=== PATIENT | female | born 1985 | race Two or more races ===

== ENCOUNTER 2016-12-04 11:34 | Inpatient (IN) | payer OTHER ==
[~2016-12-04 11:34] MED LIST: DINOPROSTONE 10 MG VAGINAL SUPPOSITORY VG ONE
[2016-12-04 12:51] VITALS: BMI 26.2
[2016-12-04 13:00] LABS: MCH 32.1 pg (25.7-33.7); MCHC 33.7 g/dl (32.0-36.0); MEAN CELL VOLUME 95.1 fl (80-96); MEAN PLT VOLUME 8.2 fl (7.5-11.1); PLATELET COUNT 158 K/MM3 (134-434); RDW 13.3 % (11.6-15.6); WHITE BLOOD COUNT 8.8 K/mm3 (4.0-10.0)
[2016-12-04 13:20] LABS: INR 0.95 (0.82-1.09); PROTHROMBIN TIME (PATIENT) 10.4 SEC (9.98-11.88)
[2016-12-04 13:23] LABS: ACTIVATED PTT 24.8 SECONDS (26.9-34.4)
[2016-12-04 13:33] LABS: ANION GAP 8 (8-16); CALCIUM 8.7 mg/dL (8.5-10.1); CO2 26 mmol/L (21-32); CREATININE 0.4 mg/dL (0.55-1.02); GLUCOSE,RANDOM 96 mg/dL (74-106)
[2016-12-04 13:48] LABS: PLATELET ESTIMATE ADEQUATE (NORMAL); TOTAL CELLS COUNTED 100
[2016-12-04 13:49] LABS: METAMYELOCYTE 2 % (0-2); MYELOCYTE 1 % (0-2)
--- NOTE | 2016-12-04 17:18 | HP ---
Past Medical History - Primary Care Physician PCP:: Alvina Velasco - Admission Chief Complaint: 31 yrs , edc 12/03/16 40.1 weeks c/o decreased FM for 3 days , requests for delivery ,. 12/03/16 sono , 40 .0 weeks, Vx, , post placenta BPP8/8, ISIAH 13.58cm, , EFW 70 %tile (3524gm -7'12") History of Present Illness: care at [address] [place] [address] . wt gain 37 lbs . work Up : B Pos, Rpr nr, Hbsg neg, Rubella pos, Quantiferon neg, ! hr Ama142, 3 Hr Gtt wnl ( 85, 161, 122, 89 ) genetic counselling was done due to marriage between cousins , declined work UP . NT screen was not done. Quad screen neg , growth sono done by MFM , reviewed anatomy sono normal History Source: Patient, Medical Record Limitations to Obtaining History: No Limitations - Past Medical History DIRECTOR MARKETING ANALYTICS: No: Migraine, Seizure Cardiovascular: No: HTN Pulmonary: No: Asthma Gastrointestinal: No: Constipation, GERD Hepatobiliary: No: Hepatitis B Renal/: No: UTI ...: 1 ...Para: 0 ...Term: 0 ...: 0 ...Spon : 0 ...Induced : 0 ...Multiple Gestation: 0 ...LMP: 03/08/16 ... Weeks Gestation by Dates: 38.5 ...EDC by Dates: 12/13/16 ...EDC by Sono: 12/03/16 (40.1 weeks by sono ) Heme/Onc: No: Anemia Infectious Disease: No: AIDS, HIV, STD's, Tuberculosis Psych: No: Addictions, Anxiety, Bipolar Endocrine: No: Diabetes Mellitus, Hypothyroidism - Past Surgical History Past Surgical History: Yes: None Hx Myomectomy: No Hx Transabdominal Cerclage: No - Smoking History Smoking history: Never smoked Have you smoked in the past 12 months: No - Alcohol/Substance Use Hx Alcohol Use: No History of Substance Use: reports: None Home Medications - Allergies Allergies/Adverse Reactions: Allergies Allergy/AdvReac Type Severity Reaction Status Date / Time No Known Allergies Allergy Verified 12/04/16 12:35 - Home Medications Home Medications: Ambulatory Orders Vit/Iron Fumarate/FA [ Tablet] 1 tab PO DAILY 12/04/16 Physical Exam - Maternity Vital Signs: Vital Signs Temperature 98.0 F 12/04/16 16:00 Pulse Rate 92 H 12/04/16 16:00 Respiratory Rate 20 12/04/16 16:00 Blood Pressure 103/65 12/04/16 16:00 O2 Sat by Pulse Oximetry (%) Selected Entries 12/04/16 12/04/16 12:36 14:25 Temperature 98.4 F Pulse Rate 93 H Blood Pressure 108/61 Weight 158 lb Constitutional: Yes: No Distress Eyes: Yes: WNL HENT: Yes: WNL Neck: Yes: WNL Cardiovascular: Yes: WNL Lungs: Clear to auscultation Breast(s): Yes: WNL - Abdominal Exam/OB Fundal Height: 40 Number of Fetuses: Single Presentation: Vertex Contractions: No Heart Rate (range): 140-150 Heart Rate Location: [facility] Category: I Accelerations: Uniform Decelerations: None - Vaginal Exam/OB Vaginal Bleediing: No Speculum Exam: No Dilatation (cm): close, Effacement (%): unefface Amniotic Membrane Status: Intact Presentation: Vertex/Position Station: -2 - Physical Exam Musculoskeletal: Yes: WNL Extremities: Yes: WNL. No: Calf Tenderness Edema: Yes Edema: LLE: 1+, RLE: 1+ Integumentary: Yes: WNL. No: Tattoos Deep Tendon Reflex Grade: Normal +2 ...Motor Strength: WNL Psychiatric: Yes: WNL, Alert, Oriented - Labs Lab Results: CBC, BMP 12/04/16 12:30 12/04/16 12:30 Laboratory Tests 12/04/16 12/04/16 12:30 12:30 INR 0.95 PTT (Actin FS) 24.8 L RPR Titer Nonreactive Laboratory Tests 12/04/16 12:30 Blood Type B POSITIVE Antibody Screen Negative Problem List - Problems (1) Post-term , 40-42 weeks of gestation Code(s): O48.0 - POST-TERM (2) Elective induction of labor planned Code(s): LZE5204 - Assessment/Plan 31 yrs , 40.1 weeks by sono c/o decreased FM,GBS neg admitted for induction of labor plan Cervidil insertrd at 5.O'clock anticipate vaginal delivery , trial epidural labor analgesia prn
[2016-12-04] MEDS ORDERED: PROMETHAZINE HCL 25 MG/1 ML VIAL IVPUSH ONE (17:27)
[2016-12-04] MEDS ORDERED: BUTORPHANOL TARTRATE 1 MG/ML VIAL IVPB ONE (17:27)
[2016-12-04] MEDS ORDERED: SODIUM PHOSPHATE/NA BIPHOS 133 ML ENEMA PR ONE (17:30)
[2016-12-04] MEDS ORDERED: DEXTROSE 5%-LACTATED RINGERS 1,000 ML IV SCH (17:30)
[2016-12-05] MEDS ORDERED: DEXTROSE 5%-LACTATED RINGERS 1,000 ML IV SCH (02:45)
[2016-12-05] MEDS ORDERED: BUTORPHANOL TARTRATE 1 MG/ML VIAL IVPB ONE (02:45)
[2016-12-05] MEDS ORDERED: PROMETHAZINE HCL 25 MG/1 ML VIAL IVPB ONE (02:45)
--- NOTE | 2016-12-05 05:29 | PN ---
Progress Note (short form) - Note Progress Note: 5.00. am cervidil removed . cx 1 cm/post/60 % /post/Mi/vx -1 station /pelvis adequate pt was given stadol 2 mg + phenrgan 25 mg iv at 2.15 am presently UC are irregular 3-6 min apart , mild, fhr 140-150 , cat-1 Selected Entries 12/05/16 12/05/16 01:00 03:00 Temperature 98.2 F Pulse Rate 90 76 Blood Pressure 122/64 114/62 pt is unable to tolerate vaginal exam since she is still drowsy, will wait to start Pitocin Augmentation Problem List - Problems (1) Post-term , 40-42 weeks of gestation Code(s): O48.0 - POST-TERM (2) Elective induction of labor planned Code(s): QNI8921 -
[2016-12-05] MEDS ORDERED: OXYTOCIN 15 UNITS/ LR 250 ML 250 ML IVPB SCH (05:30)
[2016-12-05] MEDS ORDERED: ELECTROLYTE-148 SOLN 1,000 ML IV SCH (08:00)
--- NOTE | 2016-12-05 09:29 | PN ---
Progress Note, Labor Vaginal Exam #1 Labor Exam Date: 12/05/16 Labor Exam Time: 09:10 Heart Rate (range): 150 Dilatation: 2-3 Effacement (%): 60 Amniotic Membrane Status: Intact Presentation: Vertex/Position Station: -1 Remarks: cx still posterior FHR 150 bpm low btb variablity, no decel With scalp massage fhr upto 156 bpm noted 8.15 AM Epidural labor analgesia was given since she is in tolerant to pain & vaginal exams plan ct trial of labor . Selected Entries 12/05/16 12/05/16 08:00 09:00 Temperature 97.9 F Pulse Rate 79 82 Blood Pressure 110/65 106/72 Vaginal Exam #2 Labor Exam Date: 12/05/16 Labor Exam Time: 10:05 Heart Rate (range): 150 Dilatation: 3-4 Effacement (%): 65 Amniotic Membrane Status: Ruptured (AROM blood stained) Presentation: Vertex/Position Station: -1 (-2/-1) Remarks: fhr cat-2 , decel to 90 bpm scalp electrode applied uc 2 min pitocin reduced Selected Entries 12/05/16 09:35 Pulse Rate 92 H Blood Pressure 106/67 10 30 AM fhr 160 bpm , no btb variablity , cat -2 Imp : Non reassuring FHR; Failed Induction of labor , Post term Plan stop trial of labor delivery by primary c/section
[2016-12-05] MEDS ORDERED: FENTANYL/BUPIVACAINE/NS/PF - PCEA - 50 ML DISP.SYRIN EP SCH ×2 (09:45)
[2016-12-05] MEDS ORDERED: CITRIC ACID/SODIUM CITRATE 30 ML UNIT-DOSE CUP PO ONE (10:48)
[2016-12-05 12:01] LABS: ARTERIAL BLOOD GAS BASE EXCESS 1.2 meq/l (-2-2); ARTERIAL BLOOD GAS HCO3 29.9 meq/L (22-26); ARTERIAL BLOOD GAS PO2 16.1 mmHg (80-100)
[2016-12-05 12:04] LABS: ARTERIAL BLD GAS O2 SATURATION 36.5 % (90-98.9); ARTERIAL BLOOD GAS BASE EXCESS 0.7 meq/l (-2-2); ARTERIAL BLOOD GAS HCO3 27.7 meq/L (22-26); ARTERIAL BLOOD GAS PO2 22.4 mmHg (80-100); PT. ON O2? NO
[2016-12-05 12:05] LABS: PT. ON O2? NO
[2016-12-05 12:06] LABS: ARTERIAL BLOOD GAS pH 7.32 (7.35-7.45)
[2016-12-05 12:07] LABS: ARTERIAL BLOOD GAS pH 7.28 (7.35-7.45)
[2016-12-05] MEDS ORDERED: ONDANSETRON 4 MG/2 ML VIAL IVPB PRN (12:26)
[2016-12-05] MEDS ORDERED: SENNOSIDES/DOCUSATE COMBO (SENNA PLUS) TABLET (UD) PO PRN (12:32)
[2016-12-05] MEDS ORDERED: METHYLERGONOVINE MALEATE 0.2 MG/1 ML AMP IM PRN (12:32)
--- NOTE | 2016-12-05 12:44 | OP ---
Operative Note - Note: Operative Date: 12/05/16 Pre-Operative Diagnosis: post term pregn, , non reassuring fhr, failed induction of labor Operation: Primary LFTC/Section Findings: 11.34 am , baby girl, 9/9, wt 7'14" ., ROT position both tubes & ovaries normal AFluid clear Benefits Specialist Dr North present in the room post low lying placenta Post-Operative Diagnosis: Other (posterior low Lying Placenta) Surgeon: Alvina Velasco Hand Inserter Operator: Orlando Sheldon Anesthesiologist/LICENSED DIRECT ENTRY MIDWIFE: Rita Choudhury Anesthesia: Epidural Specimens Removed: placenta. cord segment for ABG. cord blood sampling Estimated Blood Loss (mls): 600 Drains, Volume Out (mls): 25 (romero output sukhdeep cplor) Fluid Volume Replaced (mls): 900 (Iv ancef 1 gm ivpb ) Operative Report Dictated: Yes
[2016-12-05] MEDS: D5W-LR W/ 20 UNITS OXYTOCIN 1,000 ML IV SCH (12:54)
[2016-12-05] MEDS: IBUPROFEN 800 MG/8 ML IJ IVPB PRN ×2 (13:40→21:31)
--- NOTE | 2016-12-05 14:00 | OP ---
DATE OF OPERATION: 12/05/2016 PREOPERATIVE DIAGNOSIS: Post-term , non-reassuring heart, failed induction of labor. OPERATION: Primary low flap transverse section. SURGEON: Alvina Velasco MD [employer] [employer] DIRECTOR SURGEON: KASIA Montenegro ANESTHESIOLOGIST: Rita Choudhury DO ANESTHESIA: Epidural. FINDINGS: This is a 31-year-old, 1, para 0, 40-2/7 weeks today, is complaining of decreased movements and she was induced with Cervidil. She dilated up to 3 to 4 cm but Fhr [id number] variability low, decelerations were noted. A rupture of membranes was done and amniotic fluid was blood stained and copious amount of blood was noted, and non-reassuring heart after scalp electrodes applied, still the [id number] variability low noted so it was decided to deliver the baby by section. PROCEDURE: The patient was taken to the operating room table. Epidural Analgesia was converted into epidural anesthesia. She was in the supine position. Mackey catheter was in situ. Abdomen was shaved, prepped, and then it was painted and draped in the usual manner. Pfannenstiel incision was made through skin and subcutaneous tissue. Anterior rectus sheath was incised transversely. Bleeding points were clamped and cauterized. Rectus muscle was from the rectus sheath. Parietal peritoneum was opened vertically. Lower flap parietal peritoneum was incised transversely and the lower uterine segment was isolated. It was incised transversely. Amniotic fluid was clear. Baby was delivered from ROT position. Cord was clamped, cut, and the cord segment was collected for the cord blood gases, and then the cord blood also was collected. Baby girl: was 9/9, baby's weight is [address] North, improvement coordinator, was present in the room. Placenta was removed completely with the membranes and it was noted that the placenta was low lying posteriorly. The site of insertion was noted and it was the bleeding site from where the bleeding was occurring posteriorly on the uterus. Uterine cavity was completely cleaned and then the uterus incision was closed in 2 layers, first layer was a continuous locking with a Biosyn 0 suture, second layer was also closed with a Biosyn 0 continuous intermittent locking and vertical mattress sutures were taken. Hemostasis was verified. Bladder peritoneum was closed with a Biosyn 0 suture. Both tubes and ovaries were normal. Sponge, instrument, needle count was correct. Irrigation was done. Then the closure of the abdomen was done. Parietal peritoneum was closed with a Vicryl 0 suture. Muscles were approximated together with a Vicryl 0 interrupted sutures, and then anterior rectus sheath was closed with a Vicryl 0 continuous suture. Hemostasis was verified underneath the rectus sheath, before its closure, and also in subcutaneous tissue, hemostasis was achieved. Then the subcutaneous tissue was approximated with interrupted suture with a Vicryl 0. Then skin was approximated with cassy. A pressure dressing was given. Blood clots were removed from the vagina. The estimated blood loss was 700 mL. Urine output was 25 mL intraoperative. Crystalloid solution 900 IV infusion was given. She received IV Ancef 1 g prior to the incision. Patient tolerated procedure well and was transferred to the recovery room in stable condition. Postoperatively in the recovery room the urine output improved. Valerie [id number] MTDD
--- NOTE | 2016-12-05 14:15 | PN ---
Delivery - Delivery Section: Primary, Low Flap Transverse (postterm pregn, 40.2 weeks, non reassuring FHR, Failed induction of labor) Type of Anesthesia: Epidural EBL (cc): 600 Delivery, Single - Stages of Labor Date 1st Stage Initiatied: 12/05/16 Time 1st Stage Initiated: 02:00 Date of Delivery: 12/05/16 Time of Delivery: 11:34 Date Placenta Delivered: 12/05/16 (placenta posterior, lolying ) Time Placenta Delivered: 11:35 Placenta: Yes: Manual Removal, Uterine Exploration - Condition of Infant Inbound Customer Service Agent/Residential Installer Present: Yes Name: Opal North Infant Gender: Female Weight: 7 lb 14 oz Position: Right, OT Total Hours ROM (Hrs/Mins): 1 hour 35 minutes - 1 Minute Total Score: 9 5 Minutes Total Score: 9 - Feeding Plan Initial Plan: Exclusive throughout hospitalization Remarks - Remarks Remarks: 31 yrs , 40 .2 weeks admitted on 12/04/16 for decreased FM for induction of labor. pnc at [address] [place] [address]. gbs neg Cerrvidil inserted on 12/04/16 . 12 hrs after cervidil, 12/05/16 pitocin induction started she received stadol + phenrgan for labor analgesia followed by epidural FHR tracing BTB variablity was low, but cat 1 later on sp late decels were noted, arom was done, blood stained fluid noted, bleeding also vaginal was seen scalp electrode , no btb variablity was noted, pt contd to bleed . pt was taken for c/section intraop course was uneventful ,
[2016-12-05] MEDS ORDERED: DEXTROSE 5%-WATER - 50 ML IVPB ONE (17:31)
[2016-12-05] MEDS ORDERED: ceFAZolin SODIUM 1 GM VIAL ONE (17:32)
[2016-12-05] MEDS: CEFAZOLIN 1 GM in DEXTROSE 5%-WATER - 50 ML IVPB SCH (17:37)
[2016-12-06] MEDS ORDERED: ceFAZolin SODIUM 1 GM VIAL ONE ×2 (01:44→09:17)
[2016-12-06] MEDS ORDERED: DEXTROSE 5%-WATER - 50 ML IVPB ONE ×2 (01:44→09:17)
[2016-12-06] MEDS: CEFAZOLIN 1 GM in DEXTROSE 5%-WATER - 50 ML IVPB SCH ×2 (01:46→09:29)
[2016-12-06] MEDS: IBUPROFEN 800 MG/8 ML IJ IVPB PRN (06:34)
[2016-12-06] MEDS ORDERED: oxyCODONE HCL 5 MG TABLET PO PRN (08:00)
[2016-12-06 08:56] LABS: BASOPHIL 0.2 % (0-2.0); EOSINOPHIL 0.6 % (0-4.5); MCH 31.9 pg (25.7-33.7); MCHC 33.2 g/dl (32.0-36.0); MEAN CELL VOLUME 96.1 fl (80-96); MEAN PLT VOLUME 8.4 fl (7.5-11.1); NEUTROPHILS 81.1 % (42.8-82.8); PLATELET COUNT 142 K/MM3 (134-434); RDW 13.6 % (11.6-15.6); WHITE BLOOD COUNT 10.4 K/mm3 (4.0-10.0)
[2016-12-06] MEDS: PRENATAL VITAMINS W/ FOLIC ACID TABLET (FP) PO SCH (09:33)
[2016-12-06] MEDS: ENOXAPARIN NA (PORCINE) 40 MG/0.4 ML DISP.SYRIN SQ SCH (09:33)
[2016-12-06] MEDS: ACETAMINOPHEN 325 MG TABLET (FP) PO PRN (09:37)
[2016-12-06] MEDS ORDERED: BISACODYL 10 MG SUPP.RECT RC PRN (12:32)
[2016-12-06] MEDS: D5W-LR W/ 20 UNITS OXYTOCIN 1,000 ML IV SCH (12:44)
--- NOTE | 2016-12-06 13:34 | PN ---
Progress Note (short form) - Note Progress Note: Anesthesiology Post-op POD#1 s/p C/S under spinal anesthesia. Pt. feels well, she is able to walk without difficulty, denies h/a. No trouble with urination. VSS. Pain managed with mediations.
--- NOTE | 2016-12-06 13:39 | PN ---
Progress Note (short form) - Note Progress Note: Anesthesiology Post-op POD#1 s/p C/S under spinal anesthesia. Pt. feels well, she is able to walk without difficulty, denies h/a. No trouble with urination. VSS. Pain managed with mediations. ADDENDUM THIS SHOULD READ EPIDURAL ANESTHESIA INSTEAD OF SPINAL ANESTHESIA.
[2016-12-06] MEDS ORDERED: DIPHTH,PERTUSS(ACELL),TET 0.5 ML DISP.SYRIN IM ONE ×2 (14:00→17:00)
[2016-12-06] MEDS: IBUPROFEN 600 MG TABLET (FP) PO PRN ×2 (14:12→21:23)
[2016-12-06] MEDS: SIMETHICONE 80 MG TAB.CHEW (FP) PO PRN ×2 (14:14→21:23)
--- NOTE | 2016-12-06 15:01 | PN ---
Post Progress Note - Subjective Subjective: c/o pain scale 8/10 not voided since romero was taken out Post Day: 1 Type of Delivery: Primary C/S Vital Signs: Vital Signs Temperature 97.7 F 12/06/16 10:00 Pulse Rate 75 12/06/16 10:00 Respiratory Rate 18 12/06/16 11:00 Blood Pressure 94/51 12/06/16 10:00 O2 Sat by Pulse Oximetry (%) 100 12/05/16 13:20 Breast Exam: Yes: Soft, Other (BF ). No: Engorged Uterus: Yes: Fundus Firm, Fundus below umbilicus, Non-tender Incision: Yes: Dressing dry and intact. No: Redness, Oozing Abdomen/GI: Yes: Abdomen soft (bs active ), Passing flatus, Tolerating PO (diet ). No: Abdominal Distention, Tender Lochia: Yes: Rubra Lochia, amount: Moderate Extremities: Yes: Calves non-tender Perineum: Yes: Intact Activity: Other (not oob yet ) - Labs Labs: CBC WBC 10.4 K/mm3 (4.0-10.0) H 12/06/16 07:35 RBC 3.80 M/mm3 (3.60-5.2) 12/06/16 07:35 Hgb 12.1 GM/dL (10.7-15.3) 12/06/16 07:35 Hct 36.6 % (32.4-45.2) 12/06/16 07:35 MCV 96.1 fl (80-96) H 12/06/16 07:35 MCH 31.9 pg (25.7-33.7) 12/06/16 07:35 MCHC 33.2 g/dl (32.0-36.0) 12/06/16 07:35 RDW 13.6 % (11.6-15.6) 12/06/16 07:35 Plt Count 142 K/MM3 (134-434) 12/06/16 07:35 MPV 8.4 fl (7.5-11.1) 12/06/16 07:35 Total Counted 100 12/04/16 12:30 Neutrophils % 81.1 % (42.8-82.8) 12/06/16 07:35 Neutrophils % (Manual) 72 % (42.8-82.8) 12/04/16 12:30 Band Neuts % (Manual) 2 % (0-10) 12/04/16 12:30 Lymphocytes % 9.7 % (8-40) 12/06/16 07:35 Lymphocytes % (Manual) 16 % (8-40) 12/04/16 12:30 Monocytes % 8.4 % (3.8-10.2) 12/06/16 07:35 Monocytes % (Manual) 7 % (3.8-10.2) 12/04/16 12:30 Eosinophils % 0.6 % (0-4.5) 12/06/16 07:35 Basophils % 0.2 % (0-2.0) 12/06/16 07:35 Myelocytes % (Man) 1 % (0-2) 12/04/16 12:30 Platelet Estimate Adequate (NORMAL) 12/04/16 12:30 Other Findings, Remarks: RS cta I/o adequate Problem List - Problems (1) Post-term , 40-42 weeks of gestation Code(s): O48.0 - POST-TERM (2) Elective induction of labor planned Code(s): TUH4465 - Assessment/Plan stable. plan : ct po care encourage, po fluids, ambulation, deep breathing
[2016-12-06] MEDS: FERROUS SO4 325 MG TABLET (FP) PO SCH (21:23)
[2016-12-06] MEDS: oxyCODONE HCL 5 MG TABLET PO PRN (21:24)
[2016-12-07] MEDS: SIMETHICONE 80 MG TAB.CHEW (FP) PO PRN ×2 (01:59→07:52)
[2016-12-07] MEDS: IBUPROFEN 600 MG TABLET (FP) PO PRN ×3 (01:59→17:07)
[2016-12-07] MEDS: oxyCODONE HCL 5 MG TABLET PO PRN ×3 (01:59→17:07)
--- NOTE | 2016-12-07 07:38 | PN ---
Progress Note (short form) - Note Progress Note: pod 2 s/p c/s voids ok, no excess vaginal bleeding, ambulating CBC, BMP 12/06/16 07:35 12/04/16 12:30 Last Vital Signs Temp Pulse Resp BP Pulse Ox 98.0 F 88 20 108/62 100 12/06/16 21:00 12/06/16 21:00 12/06/16 21:00 12/06/16 21:00 12/05/16 13:20 abdomen soft, no distension, no cva incision dry, clean no calf tenderness plan ambulte, cbc in am pain management
[2016-12-07] MEDS: ACETAMINOPHEN 325 MG TABLET (FP) PO PRN ×2 (07:50→17:08)
[2016-12-07] MEDS: ENOXAPARIN NA (PORCINE) 40 MG/0.4 ML DISP.SYRIN SQ SCH (09:27)
[2016-12-07] MEDS: FERROUS SO4 325 MG TABLET (FP) PO SCH ×2 (09:28→22:31)
[2016-12-07] MEDS: PRENATAL VITAMINS W/ FOLIC ACID TABLET (FP) PO SCH (09:28)
[2016-12-08] MEDS: oxyCODONE HCL 5 MG TABLET PO PRN ×3 (02:57→16:13)
[2016-12-08] MEDS: ACETAMINOPHEN 325 MG TABLET (FP) PO PRN ×3 (02:57→16:14)
[2016-12-08] MEDS: SIMETHICONE 80 MG TAB.CHEW (FP) PO PRN ×2 (02:57→16:13)
[2016-12-08 07:55] LABS: BASOPHIL 0.6 % (0-2.0); EOSINOPHIL 2.2 % (0-4.5); MCH 32.7 pg (25.7-33.7); MCHC 34.2 g/dl (32.0-36.0); MEAN CELL VOLUME 95.5 fl (80-96); MEAN PLT VOLUME 7.7 fl (7.5-11.1); NEUTROPHILS 67.1 % (42.8-82.8); PLATELET COUNT 199 K/MM3 (134-434); RDW 13.4 % (11.6-15.6); WHITE BLOOD COUNT 6.8 K/mm3 (4.0-10.0)
--- NOTE | 2016-12-08 08:53 | PN ---
Post Progress Note - Subjective Subjective: 31 yo Para 1 status post primary , seen and evaluated. Doing well. Post Day: 3 Type of Delivery: Primary C/S Vital Signs: Vital Signs Temperature 98.2 F 12/07/16 21:17 Pulse Rate 87 12/07/16 21:17 Respiratory Rate 20 12/07/16 21:17 Blood Pressure 109/71 12/07/16 21:17 O2 Sat by Pulse Oximetry (%) 100 12/05/16 13:20 Breast Exam: Yes: Soft Uterus: Yes: Fundus Firm Incision: Yes: Dillard intact Abdomen/GI: Yes: Abdomen soft, Tolerating PO Lochia: Yes: Rubra Lochia, amount: Small Extremities: Yes: Calves non-tender Perineum: Yes: Intact Activity: Ambulating - Labs Labs: CBC WBC 6.8 K/mm3 (4.0-10.0) D 12/08/16 07:00 RBC 3.78 M/mm3 (3.60-5.2) 12/08/16 07:00 Hgb 12.3 GM/dL (10.7-15.3) 12/08/16 07:00 Hct 36.1 % (32.4-45.2) 12/08/16 07:00 MCV 95.5 fl (80-96) 12/08/16 07:00 MCH 32.7 pg (25.7-33.7) 12/08/16 07:00 MCHC 34.2 g/dl (32.0-36.0) 12/08/16 07:00 RDW 13.4 % (11.6-15.6) 12/08/16 07:00 Plt Count 199 K/MM3 (134-434) D 12/08/16 07:00 MPV 7.7 fl (7.5-11.1) 12/08/16 07:00 Total Counted 100 12/04/16 12:30 Neutrophils % 67.1 % (42.8-82.8) 12/08/16 07:00 Neutrophils % (Manual) 72 % (42.8-82.8) 12/04/16 12:30 Band Neuts % (Manual) 2 % (0-10) 12/04/16 12:30 Lymphocytes % 22.5 % (8-40) D 12/08/16 07:00 Lymphocytes % (Manual) 16 % (8-40) 12/04/16 12:30 Monocytes % 7.6 % (3.8-10.2) 12/08/16 07:00 Monocytes % (Manual) 7 % (3.8-10.2) 12/04/16 12:30 Eosinophils % 2.2 % (0-4.5) D 12/08/16 07:00 Basophils % 0.6 % (0-2.0) 12/08/16 07:00 Myelocytes % (Man) 1 % (0-2) 12/04/16 12:30 Platelet Estimate Adequate (NORMAL) 12/04/16 12:30 Assessment/Plan Status post repeat Stable Continue routine Post op care
[2016-12-08] MEDS: FERROUS SO4 325 MG TABLET (FP) PO SCH ×2 (09:04→23:31)
[2016-12-08] MEDS: ENOXAPARIN NA (PORCINE) 40 MG/0.4 ML DISP.SYRIN SQ SCH (09:04)
[2016-12-08] MEDS: PRENATAL VITAMINS W/ FOLIC ACID TABLET (FP) PO SCH (09:04)
[2016-12-08] MEDS: IBUPROFEN 600 MG TABLET (FP) PO PRN ×2 (09:05→16:14)
[2016-12-09] MEDS: SIMETHICONE 80 MG TAB.CHEW (FP) PO PRN ×2 (01:27→09:57)
[2016-12-09] MEDS: ACETAMINOPHEN 325 MG TABLET (FP) PO PRN ×2 (01:27→09:57)
[2016-12-09] MEDS: IBUPROFEN 600 MG TABLET (FP) PO PRN ×2 (01:28→09:58)
[2016-12-09] MEDS: oxyCODONE HCL 5 MG TABLET PO PRN (01:28)
[2016-12-09 08:05] VITALS: BP 101/67; PULSE 78; TEMP 98.3
[2016-12-09] MEDS: FERROUS SO4 325 MG TABLET (FP) PO SCH (09:57)
[2016-12-09] MEDS: ENOXAPARIN NA (PORCINE) 40 MG/0.4 ML DISP.SYRIN SQ SCH (09:57)
[2016-12-09] MEDS: PRENATAL VITAMINS W/ FOLIC ACID TABLET (FP) PO SCH (09:57)
--- NOTE | 2016-12-09 11:12 | DS ---
Physical Exam-MATERIAL ANALYST Vital Signs: Vital Signs Temperature 98.3 F 12/09/16 08:04 Pulse Rate 78 12/09/16 08:04 Respiratory Rate 20 12/09/16 08:04 Blood Pressure 101/67 12/09/16 08:04 O2 Sat by Pulse Oximetry (%) 100 12/08/16 21:00 Constitutional: Yes: Well Nourished Eyes: Yes: Conjunctiva Clear HENT: Yes: Atraumatic Neck: Yes: Supple, Trachea Midline Cardiovascular: Yes: Regular Rate and Rhythm Respiratory: Yes: Regular Gastrointestinal: Yes: Normal Bowel Sounds ...Rectal Exam: Yes: WNL Renal/: Yes: WNL Pelvis: Yes: WNL External Genitalia: Yes: Normal Vaginal Exam: Yes: Normal Cervix: Yes: Normal ....Post : Yes: Uterus firm Wound/Incision: Yes: Well Approximated, Shamika Removed, Other (Sterile strips placed). No: Bleeding Neurological: Yes: Alert, Oriented Labs: CBC, BMP 12/08/16 07:00 12/04/16 12:30 Delivery - Delivery Section: Primary, Low Flap Transverse (postterm pregn, 40.2 weeks, non reassuring FHR, Failed induction of labor) Type of Anesthesia: Epidural EBL (cc): 600 Delivery, Single - Stages of Labor Date 1st Stage Initiatied: 12/05/16 Time 1st Stage Initiated: 02:00 Date of Delivery: 12/05/16 Time of Delivery: 11:34 Time Placenta Delivered: 11:35 Placenta: Yes: Manual Removal, Uterine Exploration - Condition of Infant Assembly Machine Offbearer/Post Graduate Internship Present: Yes Name: Opal North Infant Gender: Female Weight: 7 lb 14 oz Position: Right, OT Total Hours ROM (Hrs/Mins): 1 hour 35 minutes - 1 Minute Total Score: 9 5 Minutes Total Score: 9 - [place] Feeding Plan Initial Plan: Exclusive throughout hospitalization Discharge Summary Reason For Visit: INDUCTION OF LABOR Current Active Problems Delivery by emergency section (Acute) Elective induction of labor planned (Acute) Non-reassuring electronic monitoring tracing (Acute) Post-term , 40-42 weeks of gestation (Acute) Procedures: Principal: Repeat Low Transverse Hospital Course: Routine Post op care Condition: Stable - Instructions Diet, Activity, Other Instructions: Post Instructions DIET: Continue good diet high in protein, calcium, and iron rich foods. Drink at least eight (8) glasses of water daily in addition to other fluids. ct Regular diet MEDICATIONS: Continue vitamins and iron as previously directed. Motrin and Tylenol may be taken for minor discomfort. ACTIVITY: Mild to moderate exercise may be started in two (2) weeks. Take frequent rest periods. Resume normal activity after six (6) week check up. WOUND CARE OF OPERATIVE SITE: Continue use of perineal bottle until vaginal discharge stops. Keep area clean. Shower daily. Keep abdominal wound dry. Report any drainage or redness to physician. Tub baths, tampons and douches are not permitted for [address] Breast feeding & or Bottle feeding BREAST CARE: (For those that are not breast feeding): If engorgement occurs: Wear tight fitting bra. Take Tylenol or Motrin for pain. Apply cold packs (ice in bags to each breast ) FAMILY PLANNING: There are many control alternatives to pursue and they should be discussed at your first office visit. You may resume sexual activity after your six (6) week check up. (Remember, breast feeding is not a contraceptive) NEXT PHYSICIAN APPOINTMENT: Be certain to call for a one (1) week appointment, unless otherwise directed.wound check Call Clinic or got to Emergency Dept if you have any of the following: Heavy vaginal bleeding Painful urination Leg pain Unusual odor noted to vaginal bleeding High fever Red streaking noted on breast Referrals: Alvina Velasco MD [Staff Physician] - Disposition: HOME - Home Medications Comprehensive Discharge Medication List: Ambulatory Orders Vit/Iron Fumarate/FA [ Tablet] 1 tab PO DAILY 12/04/16 Acetaminophen [Tylenol -] 500 mg PO Q6H #30 tablet 12/06/16 Acetaminophen [Tylenol .Regular Strength -] 500 mg PO Q4H PRN #30 tablet Ibuprofen [Motrin -] 600 mg PO Q4H PRN #30 tablet 12/06/16 Vitamins (Sjr) - 1 tab PO DAILY tablet 12/06/16
--- NOTE | 2016-12-11 16:25 | PATH ---
Surgical Pathology Report Patient Name: THOMAS PEREZ Med. Rec. #: [id number] /Age/Gender: 1985 (Age: 31) / F Account: [id number] Location: [facility] OBS/TIRE FINISHER Taken: 12/05/2016 Received: 12/06/2016 Reported: 12/11/2016 Physicians: Alvina Velasco M.D. Specimen(s) Received PLACENTA Clinical History , 40.2 weeks, nonreassuring heart rate, failed induction; posterior low lying placenta Primary c/section Final Diagnosis PLACENTA, DELIVERY: INTACT THIRD TRIMESTER PLACENTA WITH MODERATE INCREASE IN PREVILLOUS, PERIVILLOUS, AND PRECHORIONIC FIBRIN DEPOSITION, FOCAL CALCIFICATIONS, THREE VESSEL UMBILICAL CORD, AND PLACENTAL MEMBRANES WITH FOCAL AMNION HYPERPLASIA. Electronically Signed Bryce Chavarria M.D. Gross Description The specimen is received fresh, labeled "placenta" and is a 494 gram, 16.0 x 14.5 x 2.8 cm placenta with attached membranes and umbilical cord. The attached membranes are reddy, translucent with focal opacities and insert marginally. The umbilical cord measures 18 cm in length and averages 1 cm in diameter. The cord inserts eccentrically, 5 cm to the nearest margin. No true knots or strictures are identified. Cut surface of the umbilical cord reveals 3 vessels. The surface is rojas-blue with fibrin deposition and appropriate caliber vessels. The maternal surface is red-brown and intact. Sectioning reveals red-brown, spongy parenchyma. No focal lesions are identified. Occupational Therapist Aide sections are submitted in three cassettes as follows: 1- membrane rolls and umbilical cord; 2-3- full thickness sections of placenta. 12/07/201612/07/2016
[2017-01-11 14:06] LABS: TYPE OF O2 ROOM AIR
== END 2016-12-09 12:45 | disposition home or self-care (01) | DRG 540 ==
LOC: JLDR 11:34 → J3W 12-05 13:40
PROVIDERS: ADMIT Obstetrics & Gynecology; ATTEND Obstetrics & Gynecology
PROC: 3E0P7GC Introduction of Other Therapeutic Substance into Female Reproductive, Via Natural or Artificial Opening (ICD-10-PCS; 2016-12-04)
PROC: 4A1HXCZ Monitoring of Products of Conception, Cardiac Rate, External Approach (ICD-10-PCS; 2016-12-04)
PROC: 10D00Z1 Extraction of Products of Conception, Low, Open Approach (ICD-10-PCS; principal; 2016-12-05)
DX: O48.0 Post-term pregnancy (principal); O76 Abnormality in fetal heart rate and rhythm complicating labor and delivery; O61.0 Failed medical induction of labor; O36.8130 Decreased fetal movements, third trimester, not applicable or unspecified; Z3A.40 40 weeks gestation of pregnancy; Z37.0 Single live birth
CPT/HCPCS: 36415; 36600; 80048; 82803; 85025; 85610; 85730; 86593; 86850; 86900; 86901; 88307-TC; 90715